=== PATIENT | male | born 1955 | race Caucasian/White ===

== ENCOUNTER 2021-11-02 08:58 | Inpatient (IN) ==
[2021-11-02] MEDS ORDERED: Ipratropium/Albuterol Neb 3 ML ONE (09:01)
[2021-11-02] MEDS ORDERED: Ipratropium/Albuterol Neb 3 ML IH ONE ×2 (09:15)
[2021-11-02] MEDS ORDERED: 0.9 % Sodium Chloride 1,000 ML IV ONE (09:15)
[2021-11-02] MEDS ORDERED: Aspirin 81 MG TAB.CHEW PO ONE (09:16)
[2021-11-02 09:28] LABS: Basophils % 0.4 %; Eosinophils % 0.2 %; Hemoglobin 19.9 g/dL (12.9-16.9); Immature Granulocytes % 0.9 % (0-4); Lymphocytes # 0.7 K/mcL (0.6-4.6); Lymphocytes % 8.6 %; Mean Corpuscular HGB Conc 33.6 g/dL (31.6-35.5); Mean Corpuscular Hemoglobin 32.1 pg (28.0-33.3); Mean Corpuscular Volume 95.5 fL (83.0-100.0); Mean Platelet Volume 9.6 fL (9.4-12.4); Monocytes # 0.9 K/mcL (0.0-1.3); Neutrophils # 6.4 K/mcL (1.6-8.9); Nucleated Red Blood Cells 0.2 /100 WBC (0); Platelet Count 218 K/mcL (140-400); Red Cell Distribution Width 14.7 % (11.5-14.5); Segmented Neutrophils % 78.9 %; White Blood Count 8.2 K/mcL (4.3-11.1)
[2021-11-02 09:35] LABS: INR 1.1; Prothrombin Time 11.7 Seconds (9.4-12.1)
[2021-11-02 09:40] LABS: Hematocrit 59.2 % (37.5-50.1)
[2021-11-02 09:46] LABS: Alanine Aminotransferase 15 Units/L (7-52); Albumin 4.7 g/dL (3.5-5.7); Albumin/Globulin Ratio 1.7 (1.1-2.2); Alkaline Phosphatase 106 Units/L (34-104); Aspartate Amino Transferase 19 Units/L (13-39); BUN/Creatinine Ratio 8 (6-26); Bilirubin,Total 0.6 mg/dL (0.3-1.0); Blood Urea Nitrogen 5 mg/dL (8-23); Calcium 9.4 mg/dL (8.6-10.3); Carbon Dioxide 35 mEq/L (23-29); Chloride 84 mEq/L (98-107); Globulin 2.8 g/dL (2.4-3.5); Glucose 145 mg/dL (70-105); Magnesium 1.8 mg/dL (1.6-2.6); Osmolality,Calculated 262 (280-300); Phosphorous 3.7 mg/dL (2.7-4.5); Potassium 4.2 mEq/L (3.5-5.1); Sodium 126 mEq/L (136-145); Total Protein 7.5 g/dL (6.4-8.9)
[2021-11-02 09:49] LABS: Troponin I 0.03 ng/mL (< 0.04)
[2021-11-02 09:49] LABS: Bilirubin,Urine Negative (Negative); Blood,Urine Negative (Negative); Clarity,Urine Clear (Clear); Color,Urine Yellow (Yellow); Glucose,Urine (UA) Normal (Normal); Ketones,Urine Negative (Negative); Leukocyte Esterase,Urine Negative (Negative); Nitrite,Urine Negative (Negative); Protein,Urine 30 mg/dL (Neg-Trace); Specific Gravity,Urine 1.015 (1.010-1.025); Urobilinogen,Urine Normal (Normal)
[2021-11-02] MEDS ORDERED: Azithromycin 500 MG in 0.9 % Sodium Chloride 250 ML IVPB ONE (10:00)
[2021-11-02 10:16] LABS: D-Dimer 446 ng/mLFEU (0-500)
[2021-11-02 10:17] LABS: Heparin anti-factor XA UFH < 0.04 IU/mL (0.30-0.70)
[2021-11-02 10:19] LABS: Bacteria,Urine None Seen per hpf (None-Few); Squamous Epithelial Cell,Urine Few per hpf (None-Few); WBC,Urine 0-3 per hpf (0-3)
[2021-11-02 10:26] LABS: ABG Base Excess 4 mEq/L (-2 to 3); ABG HCO3 33 mEq/L (21-27); ABG Oxygen Saturation 90 % (95-98); ABG PCO2 61 mmHg (35-45); ABG PH 7.34 pH Units (7.32-7.45); ABG PO2 65 mmHg (85-104); ABG TCO2 35 mEq/L (20-26)
[2021-11-02 10:32] LABS: ABG Base Excess 2 mEq/L (-2 to 3); ABG HCO3 31 mEq/L (21-27); ABG Oxygen Saturation 87 % (95-98); ABG PCO2 63 mmHg (35-45); ABG PO2 61 mmHg (85-104); ABG TCO2 33 mEq/L (20-26)
[2021-11-02] MEDS ORDERED: Ondansetron 4 MG/2 ML VIAL IVP PRN (11:13)
[2021-11-02] MEDS ORDERED: Naloxone 0.4 MG/ML INJ IVP PRN (11:13)
[2021-11-02] MEDS ORDERED: Acetaminophen 325 MG TABLET PO PRN (11:13)
[2021-11-02] MEDS: Ipratropium/Albuterol Neb 3 ML IH SCH ×3 (12:27→20:14)
[2021-11-02] MEDS ORDERED: *HR* LORazepam 1 MG TABLET PO PRN (12:46)
[2021-11-02] MEDS ORDERED: *HR* LORazepam 2 MG/ML VIAL IVP PRN (12:46)
[2021-11-02] MEDS ORDERED: Folic Acid 1 MG TABLET PO SCH (13:00)
[2021-11-02] MEDS ORDERED: Vitamin B Complex/Vit C/Vit E 1 EACH TABLET PO SCH (13:00)
[2021-11-02] MEDS ORDERED: Thiamine (B-1) 100 MG TABLET PO SCH (13:00)
[2021-11-02] MEDS ORDERED: 0.9 % Sodium Chloride 1,000 ML IVC SCH (13:00)
[2021-11-02 13:17] LABS: ABG Base Excess 3 mEq/L (-2 to 3); ABG HCO3 30 mEq/L (21-27); ABG Oxygen Saturation 94 % (95-98); ABG PCO2 54 mmHg (35-45); ABG PH 7.36 pH Units (7.32-7.45); ABG PO2 74 mmHg (85-104); ABG TCO2 32 mEq/L (20-26)
[2021-11-02] MEDS: MethylPREDNISolone 40 MG/ML VIAL IVP SCH ×2 (15:59→16:01)
[2021-11-02 17:31] LABS: Adenovirus Not Detected (Not Detect); Bordetella Pertussis Not Detected (Not Detect); Chlamydophila pneumoniae Not Detected (Not Detect); Coronavirus 229E Not Detected (Not Detect); Coronavirus HKU1 Not Detected (Not Detect); Coronavirus NL63 Not Detected (Not Detect); Coronavirus OC43 Not Detected (Not Detect); Human Metapneumovirus Not Detected (Not Detect); Human Rhinovirus/Enterovirus Not Detected (Not Detect); Influenza A Subtype 2009 H1 Not Detected (Not Detect); Influenza B Not Detected (Not Detect); Parainfluenza Virus 1 Not Detected (Not Detect); Parainfluenza Virus 2 Not Detected (Not Detect); Parainfluenza Virus 3 Not Detected (Not Detect); Parainfluenza Virus 4 Not Detected (Not Detect); Respiratory Syncytial Virus Not Detected (Not Detect); SARS-CoV-2 Not Detected (Not Detect)
[2021-11-02 17:32] LABS: Mycoplasma pneumoniae Not Detected (Not Detect)
[2021-11-02] MEDS: Budesonide/Formoterol 160/4.5 1 PUFF INH IH SCH (20:16)
[2021-11-03] MEDS: MethylPREDNISolone 40 MG/ML VIAL IVP SCH ×4 (00:29→18:04)
[2021-11-03] MEDS: Ipratropium/Albuterol Neb 3 ML IH SCH ×6 (01:22→20:10)
[2021-11-03] MEDS: *HR* Enoxaparin 40 MG/0.4 ML SYRINGE SQ SCH (05:07)
[2021-11-03 05:12] LABS: Hematocrit 53.4 % (37.5-50.1); Hemoglobin 17.6 g/dL (12.9-16.9); Mean Corpuscular Hemoglobin 31.5 pg (28.0-33.3); Mean Corpuscular Volume 95.7 fL (83.0-100.0); Mean Platelet Volume 9.6 fL (9.4-12.4); Platelet Count 218 K/mcL (140-400); Red Blood Count 5.58 M/mcL (4.19-5.50); Red Cell Distribution Width 14.6 % (11.5-14.5); White Blood Count 4.6 K/mcL (4.3-11.1)
[2021-11-03 05:32] LABS: BUN/Creatinine Ratio 11 (6-26); Blood Urea Nitrogen 5 mg/dL (8-23); Calcium 8.5 mg/dL (8.6-10.3); Carbon Dioxide 33 mEq/L (23-29); Chloride 92 mEq/L (98-107); Chol/HDL Ratio 2.3 (0-4.9); Cholesterol 129 mg/dL (< 200); Glucose 141 mg/dL (70-105); HDL Cholesterol 56 mg/dL (40-59); LDL Cholesterol,Calculated 64 mg/dL (< 100); Magnesium 1.8 mg/dL (1.6-2.6); Osmolality,Calculated 272 (280-300); Sodium 131 mEq/L (136-145); Triglycerides 46 mg/dL (< 150)
[2021-11-03] MEDS: Budesonide/Formoterol 160/4.5 1 PUFF INH IH SCH ×2 (07:36→20:10)
[2021-11-03] MEDS: Aspirin Enteric Coated 81 MG Tablet PO SCH (08:45)
[2021-11-03] MEDS: amLODIPine 5 MG TABLET PO SCH (08:45)
[2021-11-03] MEDS: Multivit/Ca/Min/Fe/FA 1 TAB TABLET PO SCH (08:45)
[2021-11-03] MEDS: lisinopriL 20 MG TABLET PO SCH (08:45)
[2021-11-03] MEDS: Cholecalciferol (D-3) 1,000 UNIT (25MCG) TABLET PO SCH (08:45)
[2021-11-03] MEDS: Metoprolol XL (24 HR) Succ 50 MG TAB.ER.24H PO SCH (08:45)
[2021-11-04] MEDS: Ipratropium/Albuterol Neb 3 ML IH SCH ×7 (00:10→23:42)
[2021-11-04] MEDS: MethylPREDNISolone 40 MG/ML VIAL IVP SCH ×4 (00:36→17:48)
[2021-11-04] MEDS: *HR* Enoxaparin 40 MG/0.4 ML SYRINGE SQ SCH (05:17)
[2021-11-04 07:59] LABS: Mean Corpuscular HGB Conc 33.3 g/dL (31.6-35.5); Mean Corpuscular Hemoglobin 31.9 pg (28.0-33.3); Mean Corpuscular Volume 95.6 fL (83.0-100.0); Mean Platelet Volume 9.7 fL (9.4-12.4); Platelet Count 235 K/mcL (140-400); Red Blood Count 5.65 M/mcL (4.19-5.50); Red Cell Distribution Width 14.8 % (11.5-14.5); White Blood Count 9.5 K/mcL (4.3-11.1)
[2021-11-04] MEDS: Budesonide/Formoterol 160/4.5 1 PUFF INH IH SCH ×2 (08:13→21:02)
[2021-11-04 08:18] LABS: BUN/Creatinine Ratio 17 (6-26); Blood Urea Nitrogen 9 mg/dL (8-23); Calcium 8.9 mg/dL (8.6-10.3); Carbon Dioxide 35 mEq/L (23-29); Chloride 91 mEq/L (98-107); Glucose 120 mg/dL (70-105); Osmolality,Calculated 276 (280-300); Potassium 4.5 mEq/L (3.5-5.1); Sodium 133 mEq/L (136-145)
[2021-11-04] MEDS: Aspirin Enteric Coated 81 MG Tablet PO SCH (08:55)
[2021-11-04] MEDS: Metoprolol XL (24 HR) Succ 50 MG TAB.ER.24H PO SCH (08:55)
[2021-11-04] MEDS: amLODIPine 5 MG TABLET PO SCH (08:55)
[2021-11-04] MEDS: lisinopriL 20 MG TABLET PO SCH (08:56)
[2021-11-04] MEDS: Cholecalciferol (D-3) 1,000 UNIT (25MCG) TABLET PO SCH (08:56)
[2021-11-04] MEDS: Multivit/Ca/Min/Fe/FA 1 TAB TABLET PO SCH (08:56)
[2021-11-04] MEDS: Melatonin 3 MG TABLET PO PRN (20:53)
[2021-11-05] MEDS: MethylPREDNISolone 40 MG/ML VIAL IVP SCH ×3 (00:51→17:15)
[2021-11-05] MEDS: Ipratropium/Albuterol Neb 3 ML IH SCH ×5 (03:59→20:37)
[2021-11-05 05:05] LABS: Hematocrit 51.7 % (37.5-50.1); Hemoglobin 17.4 g/dL (12.9-16.9); Mean Corpuscular HGB Conc 33.7 g/dL (31.6-35.5); Mean Corpuscular Hemoglobin 31.7 pg (28.0-33.3); Mean Corpuscular Volume 94.2 fL (83.0-100.0); Mean Platelet Volume 9.5 fL (9.4-12.4); Platelet Count 231 K/mcL (140-400); Red Blood Count 5.49 M/mcL (4.19-5.50); Red Cell Distribution Width 14.6 % (11.5-14.5)
[2021-11-05 05:18] LABS: BUN/Creatinine Ratio 24 (6-26); Blood Urea Nitrogen 10 mg/dL (8-23); Calcium 8.5 mg/dL (8.6-10.3); Carbon Dioxide 33 mEq/L (23-29); Chloride 91 mEq/L (98-107); Glucose 129 mg/dL (70-105); Magnesium 2.1 mg/dL (1.6-2.6); Osmolality,Calculated 269 (280-300); Potassium 4.1 mEq/L (3.5-5.1); Sodium 129 mEq/L (136-145)
[2021-11-05] MEDS: *HR* Enoxaparin 40 MG/0.4 ML SYRINGE SQ SCH (05:33)
[2021-11-05] MEDS: Budesonide/Formoterol 160/4.5 1 PUFF INH IH SCH ×2 (08:47→20:37)
[2021-11-05] MEDS: amLODIPine 5 MG TABLET PO SCH (09:16)
[2021-11-05] MEDS: lisinopriL 20 MG TABLET PO SCH (09:16)
[2021-11-05] MEDS: Metoprolol XL (24 HR) Succ 50 MG TAB.ER.24H PO SCH (09:17)
[2021-11-05] MEDS: Multivit/Ca/Min/Fe/FA 1 TAB TABLET PO SCH (09:17)
[2021-11-05] MEDS: Cholecalciferol (D-3) 1,000 UNIT (25MCG) TABLET PO SCH (09:17)
[2021-11-05] MEDS: Aspirin Enteric Coated 81 MG Tablet PO SCH (09:17)
[2021-11-05 21:36] LABS: ABG Base Excess 4 mEq/L (-2 to 3); ABG HCO3 30 mEq/L (21-27); ABG Oxygen Saturation 95 % (95-98); ABG PCO2 48 mmHg (35-45); ABG PO2 79 mmHg (85-104); ABG TCO2 31 mEq/L (20-26)
[2021-11-06] MEDS: MethylPREDNISolone 40 MG/ML VIAL IVP SCH (00:11)
[2021-11-06] MEDS: Ipratropium/Albuterol Neb 3 ML IH SCH ×7 (00:15→23:53)
[2021-11-06] MEDS: *HR* Enoxaparin 40 MG/0.4 ML SYRINGE SQ SCH (05:42)
[2021-11-06] MEDS: Budesonide/Formoterol 160/4.5 1 PUFF INH IH SCH ×2 (07:37→20:04)
[2021-11-06] MEDS: Aspirin Enteric Coated 81 MG Tablet PO SCH (10:03)
[2021-11-06] MEDS: lisinopriL 20 MG TABLET PO SCH (10:03)
[2021-11-06] MEDS: Multivit/Ca/Min/Fe/FA 1 TAB TABLET PO SCH (10:04)
[2021-11-06] MEDS: predniSONE 20 MG TABLET PO SCH (10:04)
[2021-11-06] MEDS: amLODIPine 5 MG TABLET PO SCH (10:04)
[2021-11-06] MEDS: Metoprolol XL (24 HR) Succ 50 MG TAB.ER.24H PO SCH (10:04)
[2021-11-06] MEDS: Cholecalciferol (D-3) 1,000 UNIT (25MCG) TABLET PO SCH (10:04)
[2021-11-06] MEDS: Melatonin 3 MG TABLET PO PRN (21:47)
[2021-11-07] MEDS: Ipratropium/Albuterol Neb 3 ML IH SCH ×7 (03:42→23:30)
[2021-11-07] MEDS: *HR* Enoxaparin 40 MG/0.4 ML SYRINGE SQ SCH (06:00)
[2021-11-07] MEDS: Budesonide/Formoterol 160/4.5 1 PUFF INH IH SCH ×2 (08:49→20:15)
[2021-11-07] MEDS: predniSONE 20 MG TABLET PO SCH (09:26)
[2021-11-07] MEDS: lisinopriL 20 MG TABLET PO SCH (09:26)
[2021-11-07] MEDS: Cholecalciferol (D-3) 1,000 UNIT (25MCG) TABLET PO SCH (09:27)
[2021-11-07] MEDS: Aspirin Enteric Coated 81 MG Tablet PO SCH (09:27)
[2021-11-07] MEDS: Metoprolol XL (24 HR) Succ 50 MG TAB.ER.24H PO SCH (09:27)
[2021-11-07] MEDS: amLODIPine 5 MG TABLET PO SCH (09:27)
[2021-11-07] MEDS: Multivit/Ca/Min/Fe/FA 1 TAB TABLET PO SCH (09:27)
[2021-11-07] MEDS: Nystatin SUSP 5 ML UD.LIQ PO SCH ×3 (18:55→21:16)
[2021-11-07] MEDS: Melatonin 3 MG TABLET PO PRN (21:16)
[2021-11-08] MEDS: Ipratropium/Albuterol Neb 3 ML IH SCH ×4 (03:58→22:51)
[2021-11-08] MEDS: *HR* Enoxaparin 40 MG/0.4 ML SYRINGE SQ SCH (04:07)
[2021-11-08 04:44] LABS: Basophils % 0.1 %; Eosinophils # 0.1 K/mcL (0.0-0.6); Eosinophils % 1.2 %; Hematocrit 48.8 % (37.5-50.1); Hemoglobin 16.2 g/dL (12.9-16.9); Immature Granulocytes % 0.6 % (0-4); Lymphocytes % 12.1 %; Mean Corpuscular HGB Conc 33.2 g/dL (31.6-35.5); Mean Corpuscular Hemoglobin 31.6 pg (28.0-33.3); Mean Corpuscular Volume 95.1 fL (83.0-100.0); Mean Platelet Volume 9.2 fL (9.4-12.4); Monocytes # 1.2 K/mcL (0.0-1.3); Monocytes % 14.8 %; Neutrophils # 5.8 K/mcL (1.6-8.9); Platelet Count 207 K/mcL (140-400); Red Blood Count 5.13 M/mcL (4.19-5.50); Red Cell Distribution Width 14.6 % (11.5-14.5); Segmented Neutrophils % 71.2 %; White Blood Count 8.2 K/mcL (4.3-11.1)
[2021-11-08 04:57] LABS: BUN/Creatinine Ratio 31 (6-26); Blood Urea Nitrogen 12 mg/dL (8-23); Calcium 8.2 mg/dL (8.6-10.3); Carbon Dioxide 34 mEq/L (23-29); Chloride 94 mEq/L (98-107); Glucose 85 mg/dL (70-105); Osmolality,Calculated 271 (280-300); Sodium 131 mEq/L (136-145)
[2021-11-08] MEDS: Cholecalciferol (D-3) 1,000 UNIT (25MCG) TABLET PO SCH (08:34)
[2021-11-08] MEDS: Aspirin Enteric Coated 81 MG Tablet PO SCH (08:34)
[2021-11-08] MEDS: Multivit/Ca/Min/Fe/FA 1 TAB TABLET PO SCH (08:34)
[2021-11-08] MEDS: Nystatin SUSP 5 ML UD.LIQ PO SCH ×4 (08:34→19:47)
[2021-11-08] MEDS: lisinopriL 20 MG TABLET PO SCH (08:34)
[2021-11-08] MEDS: predniSONE 20 MG TABLET PO SCH (08:34)
[2021-11-08] MEDS: Metoprolol XL (24 HR) Succ 50 MG TAB.ER.24H PO SCH (08:34)
[2021-11-08] MEDS: amLODIPine 5 MG TABLET PO SCH (08:35)
[2021-11-08] MEDS: Budesonide/Formoterol 160/4.5 1 PUFF INH IH SCH ×2 (09:38→22:52)
[2021-11-08] MEDS ORDERED: Nitroglycerin 0.4 MG TAB.SUBL SL PRN (13:18)
[2021-11-08] MEDS: Melatonin 3 MG TABLET PO PRN (19:47)
[2021-11-09] MEDS: Ipratropium/Albuterol Neb 3 ML IH SCH ×3 (04:33→15:37)
[2021-11-09] MEDS: *HR* Enoxaparin 40 MG/0.4 ML SYRINGE SQ SCH (04:34)
[2021-11-09] MEDS: Multivit/Ca/Min/Fe/FA 1 TAB TABLET PO SCH (08:25)
[2021-11-09] MEDS: lisinopriL 20 MG TABLET PO SCH (08:25)
[2021-11-09] MEDS: predniSONE 20 MG TABLET PO SCH (08:25)
[2021-11-09] MEDS: Nystatin SUSP 5 ML UD.LIQ PO SCH ×2 (08:25→12:46)
[2021-11-09] MEDS: Cholecalciferol (D-3) 1,000 UNIT (25MCG) TABLET PO SCH (08:25)
[2021-11-09] MEDS: Metoprolol XL (24 HR) Succ 50 MG TAB.ER.24H PO SCH (08:25)
[2021-11-09] MEDS: amLODIPine 5 MG TABLET PO SCH (08:25)
[2021-11-09] MEDS: Aspirin Enteric Coated 81 MG Tablet PO SCH (08:25)
[2021-11-09] MEDS: Budesonide/Formoterol 160/4.5 1 PUFF INH IH SCH (09:04)
[2021-11-09 11:33] VITALS: BP 120/65; PULSE 71; TEMP 98.1; O2SAT 91
[2021-11-09 15:42] VITALS: RESP 20
== END 2021-11-09 16:45 | disposition home or self-care (01) | DRG 193 ==
LOC: EMEROOGRE 08:58 → INPGRE 11:42
PROVIDERS: ADMIT Family Medicine; ATTEND Family Medicine